=== PATIENT | female | born 1940 | race Caucasian/White ===

== ENCOUNTER 2019-08-21 18:19 | Observation (INO) | payer MEDICARE, BC ==
[~2019-08-21] VITALS: Ht 152.4 cm; Wt 67.4 kg
[2019-08-21 19:47] LABS: EOS # 0.3 (0.04-0.40); EOS % 4.3 % (1.0-5.0); HEMATOCRIT 35.6 % (37.0-47.0); LYMPH# 2.2 (1.50-4.00); MEAN CELL VOLUME 88 fl (78-100); MEAN CORPUSCULAR HEMOGLOBIN 30 pg (27-31); MEAN CORPUSCULAR HGB CONC 34 g/dL (33-37); MEAN PLATELET VOLUME 10.9 fl (7.4-10.4); MONO # 0.9 (0.20-0.80); NEU # 4.2 (1.40-6.50); PLATELET COUNT 216 K/mm3 (130-400); RED BLOOD COUNT 4.03 M/mm3 (4.10-5.30); RED CELL DISTRIBUTION WIDTH 12.6 % (11.5-14.5); WHITE BLOOD COUNT 7.6 K/mm3 (4.8-10.8)
[2019-08-21 19:57] LABS: ALBUMIN 4.1 g/dL (3.4-4.8); POTASSIUM 3.7 mmol/L (3.5-5.1); SODIUM 131 mmol/L (136-145)
[2019-08-21 19:59] LABS: CALCIUM 9.1 mg/dL (8.3-10.5)
[2019-08-21 20:00] LABS: GLUCOSE 117 mg/dL (65-105); TOTAL PROTEIN 7.2 g/dL (6.2-8.1)
[2019-08-21 20:01] LABS: CARBON DIOXIDE 26 mmol/L (23-31)
[2019-08-21 20:02] LABS: TOTAL BILIRUBIN 0.9 mg/dL (0.2-1.2)
[2019-08-21 20:05] LABS: AST-SGOT 18 U/L (5-34)
[2019-08-21 20:06] LABS: ALT/SGPT 15 U/L (0-55)
[2019-08-21] MEDS ORDERED: SOTALOL HYDROCH80 MG PO (20:06)
[2019-08-21 20:08] LABS: PROTHROMBIN TIME 19.1 SECONDS (9.0-12.0)
[2019-08-21] MEDS ORDERED: WARFARIN SOD5 MG PO (20:16)
[2019-08-21] MEDS ORDERED: PANTOPRAZOLE SO40 MG PO (20:16)
[2019-08-21] MEDS ORDERED: METOPROLOL SUCC25 M1 PO (20:16)
[2019-08-21 20:17] LABS: TROPONIN-I < 0.03 ng/mL (<0.030)
[2019-08-21] MEDS ORDERED: HYDROCHLOROTHIA1 T15 PO (20:17)
[2019-08-21] MEDS ORDERED: SIMVASTATIN20 M1 PO (20:17)
[2019-08-21] MEDS ORDERED: VITAMIN E400 UNI1 PO (20:18)
[2019-08-21] MEDS ORDERED: OMEGA 3 FISH O1 EACH PO (20:20)
[2019-08-21] MEDS ORDERED: COUMADIN 22.5 MG/TAB PO (20:23)
[2019-08-21 20:50] LABS: URINE APPEARANCE CLEAR; URINE BILIRUBIN NEGATIVE (NEGATIVE); URINE BLOOD TRACE (NEGATIVE); URINE COLOR YELLOW; URINE GLUCOSE NEGATIVE (NEGATIVE); URINE KETONE NEGATIVE (NEGATIVE); URINE LEUKOCYTE ESTERASE NEGATIVE (NEGATIVE); URINE NITRATE NEGATIVE (NEGATIVE); URINE PROTEIN(semi-quant) TRACE mg/dL (NEGATIVE); URINE UROBILINOGEN NORMAL (NORMAL); URINE WBC 0 /hpf (0-3)
[2019-08-21 21:15] VITALS: BP 147/64
[2019-08-21 21:44] LABS: D-DIMER 0.35 mg/L FEU (0.15-0.50)
[2019-08-21 23:28] VITALS: BP 151/96
[2019-08-22 03:06] VITALS: BP 114/73
[2019-08-22 06:21] VITALS: BP 105/63
[2019-08-22 09:15] VITALS: BP 122/68
== END 2019-08-22 09:18 | disposition short-term general hospital (02) ==
LOC: ED 18:19 → MED/SURG 22:21 → ED 22:21 → MED/SURG 22:21
PROVIDERS: ADMIT Nurse Practitioner Family
DX: R55 Syncope and collapse (principal); I48.91 Unspecified atrial fibrillation; R00.1 Bradycardia, unspecified; E11.9 Type 2 diabetes mellitus without complications; E78.5 Hyperlipidemia, unspecified; Z95.2 Presence of prosthetic heart valve; Z79.01 Long term (current) use of anticoagulants; Z79.899 Other long term (current) drug therapy
CPT/HCPCS: G0378

== ENCOUNTER 2019-10-09 09:08 | Outpatient (RCR) | payer MEDICARE, BC ==
[~2019-10-09 09:08] MED LIST: COUMADIN 22.5 MG/TAB PO; HYDROCHLOROTHIA1 T15 PO; METOPROLOL SUCC25 M1 PO; OMEGA 3 FISH O1 EACH PO; PANTOPRAZOLE SO40 MG PO; SIMVASTATIN20 M1 PO; SOTALOL HYDROCH80 MG PO; VITAMIN E400 UNI1 PO; WARFARIN SOD5 MG PO
== END 2019-10-09 09:30 | disposition still patient (30) ==
LOC: PT 09:08
DX: R53.1 Weakness (principal); Z95.0 Presence of cardiac pacemaker

== ENCOUNTER 2021-06-09 21:55 | Emergency (ER) | payer MEDICARE, BC ==
[2021-06-09] MEDS ORDERED: LISINOPRIL AND1 TA1 PO (22:11)
[2021-06-09] MEDS ORDERED: WARFARIN SODIU2.5 MG PO (22:11)
[2021-06-09] MEDS ORDERED: MAGNESIUM OXID400 MG PO (22:12)
[2021-06-09] MEDS ORDERED: SOTALOL HCL120 MG PO (22:12)
[2021-06-09 22:38] VITALS: BP 139/73
== END 2021-06-09 22:38 | disposition home or self-care (01) ==
LOC: ED 21:55
DX: L76.22 Postprocedural hemorrhage of skin and subcutaneous tissue following other procedure (principal); I10 Essential (primary) hypertension; E11.9 Type 2 diabetes mellitus without complications; I48.91 Unspecified atrial fibrillation; E78.5 Hyperlipidemia, unspecified; Z79.01 Long term (current) use of anticoagulants; Z79.899 Other long term (current) drug therapy

== ENCOUNTER → 2021-06-24 | Outpatient (CLI) | payer MEDICARE, BC ==
[~2021-06-24] MED LIST changes: +LISINOPRIL AND1 TA1 PO; +MAGNESIUM OXID400 MG PO; +SOTALOL HCL120 MG PO; +WARFARIN SODIU2.5 MG PO
== END ==
LOC: LAB 12:03
DX: Z20.822 Contact with and (suspected) exposure to COVID-19 (principal)

== ENCOUNTER 2021-07-05 19:48 | Outpatient (RCR) | payer MEDICARE, BC ==
[2021-06-24 09:32] VITALS: BP 137/73
[2021-06-24 20:40] VITALS: BP 135/74
[2021-06-25 07:45] VITALS: BP 135/76
[2021-06-25 20:05] VITALS: BP 138/83
[2021-06-26 08:00] VITALS: BP 132/71
[2021-06-26 20:06] VITALS: BP 146/74
[2021-06-27 08:20] VITALS: BP 132/89
[2021-06-28 19:45] VITALS: BP 144/75
[2021-06-29 09:56] VITALS: BP 137/80
[2021-06-29 21:11] VITALS: BP 135/72
[2021-06-30 09:06] VITALS: BP 157/92
[2021-06-30 20:00] VITALS: BP 135/85
[2021-07-01 11:30] VITALS: BP 126/75
[2021-07-01 20:45] VITALS: BP 136/81
[2021-07-02 09:18] VITALS: BP 122/78
[2021-07-02 20:41] VITALS: BP 149/87
[2021-07-03 08:39] VITALS: BP 131/77
[2021-07-03 19:57] VITALS: BP 133/80
[2021-07-04 08:58] VITALS: BP 129/68
[2021-07-04 19:50] VITALS: BP 146/80
[~2021-07-05] VITALS: Ht 152.4 cm; Wt 67.4 kg
[2021-07-05 11:03] VITALS: BP 117/76
[2021-07-05 19:50] VITALS: BP 133/65
== END 2021-07-05 21:00 | disposition home or self-care (01) ==
LOC: AMSURD 19:48
DX: I48.0 Paroxysmal atrial fibrillation (principal)